=== PATIENT | male | born 1980 | race Caucasian/White ===

== ENCOUNTER 2017-12-24 10:52 | Emergency (ER) | payer SELFPAY ==
[~2017-12-24] VITALS: Ht 188 cm; Wt 93.6 kg
[2017-12-24] MEDS ORDERED: IBUPROFEN 600MG TABLET PO ONE (11:15)
[2017-12-24 13:02] VITALS: BP 150/99
== END 2017-12-24 13:35 | disposition home or self-care (01) ==
LOC: ER 10:52
DX: B35.3 Tinea pedis (principal); Z59.0 Homelessness
CPT/HCPCS: 99283

== ENCOUNTER 2017-12-31 13:11 | Emergency (ER) | payer SELFPAY ==
[~2017-12-31] VITALS: Ht 188 cm; Wt 95.0 kg
[2017-12-31 16:34] VITALS: BP 130/89
== END 2017-12-31 16:35 | disposition home or self-care (01) ==
LOC: ER 15:04
DX: S90.424A Blister (nonthermal), right lesser toe(s), initial encounter (principal); L03.115 Cellulitis of right lower limb; L03.031 Cellulitis of right toe; I10 Essential (primary) hypertension; X58.XXXA Exposure to other specified factors, initial encounter; Y93.01 Activity, walking, marching and hiking; Y92.480 Sidewalk as the place of occurrence of the external cause; Z59.0 Homelessness
CPT/HCPCS: 73630; 99284

== ENCOUNTER 2018-09-02 19:28 | Inpatient (IN) | payer MEDICAID ==
[~2018-09-02] VITALS: Ht 188 cm; Wt 102.1 kg
[2018-09-02] MEDS ORDERED: SODIUM CHLORIDE 0.9% 1,000 ML IV ONE ×2 (20:32→22:36)
[2018-09-02] MEDS ORDERED: METOPROLOL TARTRATE 50MG TABLET PO ONE (21:00)
[2018-09-02 21:04] LABS: HEMATOCRIT. 43.1 % (42.0-52.0); HEMOGLOBIN. 14.8 g/dL (14.0-18.0); MEAN CORPUSCULAR HEMOGLOBIN 32.8 pg (28.0-32.0); MEAN CORPUSCULAR VOLUME 95.4 fL (80.0-94.0); MEAN PLATELET VOLUME 8.6 fl (7.4-10.4); PLATELET 97 x1000/uL (130-400); RED BLOOD CELL COUNT 4.52 mill/uL (4.7-6.1); RED CELL DISTRIBUTION WIDTH 13.5 % (11.6-14.6)
[2018-09-02 21:06] LABS: CHLORIDE 100 mEq/L (98-107); PROTHROMBIN TIME 10.6 sec (9.6-11.0)
[2018-09-02 21:13] LABS: ETHANOL BLOOD < 10 mg/dL
[2018-09-02 21:18] LABS: PLATELET ESTIMATE DECREASED
[2018-09-02 21:28] LABS: CREATINE KINASE 1213 IU/L (39-308)
[2018-09-02 22:34] LABS: CLARITY URINE CLEAR (CLEAR); COLOR URINE YELLOW (YELLOW); KETONES URINE 1+ (NEGATIVE); LEUKOCYTE ESTERASE URINE NEGATIVE (NEGATIVE); NITRITE URINE NEGATIVE (NEGATIVE); OCCULT BLOOD URINE TRACE (NEGATIVE); PROTEIN URINE 1+ (NEGATIVE); SPECIFIC GRAVITY URINE 1.015 (1.005-1.030)
[2018-09-02] MEDS ORDERED: ENALAPRIL 2.5MG/2ML VIAL 2ML IV ONE (22:45)
[2018-09-02 22:51] LABS: *BARBITURATES SCREEN URINE NEGATIVE (NEGATIVE)
[2018-09-02 22:52] LABS: *AMPHETAMINES SCREEN URINE NEGATIVE (NEGATIVE); *BENZODIAZEPINES SCREEN URINE NEGATIVE (NEGATIVE); *COCAINE SCREEN URINE NEGATIVE (NEGATIVE); METHADONE URINE SCREEN NEGATIVE (NEGATIVE); OPIATES URINE SCREEN NEGATIVE (NEGATIVE)
[2018-09-02 22:53] LABS: CANNABINOID URINE SCREEN NEGATIVE (NEGATIVE); PHENCYCLIDINE URINE SCREEN NEGATIVE (NEGATIVE)
[2018-09-02] MEDS ORDERED: MAGNESIUM/ALUMINUM HYDROXIDE/SIMETHICONE 30ML UDC PO PRN (23:15)
[2018-09-02] MEDS ORDERED: ACETAMINOPHEN 325MG TABLET PO PRN (23:15)
[2018-09-02] MEDS ORDERED: IPRATROPIUM/ALBUTEROL 0.5-3(2.5)MG/3ML NEB INH PRN (23:15)
[2018-09-02] MEDS ORDERED: NA PHOS,M-B/NA PHOS,DI-BA ENEMA 118ML PR PRN (23:15)
[2018-09-02] MEDS ORDERED: ONDANSETRON HCL 4MG/2ML INJ IV PRN (23:15)
[2018-09-02] MEDS ORDERED: DIPHENHYDRAMINE 50MG/ML VIAL IV PRN (23:15)
[2018-09-02] MEDS ORDERED: GUAIFENESIN 200MG/10ML SUGAR FREE UDC PO PRN (23:15)
[2018-09-02] MEDS ORDERED: LORAZEPAM 2MG/ML CPJ IV PRN ×2 (23:27→23:30)
[2018-09-02] MEDS ORDERED: MVI, ADULT NO.1 10 ML, FOLIC ACID 1 MG, THIAMINE HCL 100 MG in SODIUM CHLORIDE 0.9% 1,0... IV SCH ×4 (23:59)
[2018-09-03] MEDS ORDERED: HYDRALAZINE 20MG/ML VIAL IV PRN (02:45)
[2018-09-03 03:45] VITALS: BP 156/100
[2018-09-03 04:00] VITALS: BP 156/100
[2018-09-03] MEDS ORDERED: VITA400C19 PO (04:15)
[2018-09-03] MEDS ORDERED: ASA5EC PO (04:15)
[2018-09-03] MEDS ORDERED: ASCO125T PO (04:15)
[2018-09-03] MEDS ORDERED: ERGO400C PO (04:15)
[2018-09-03] MEDS: HYDROCODONE/ACETAMINOPHEN 5/325MG TABLET PO PRN ×2 (04:21→08:33)
[2018-09-03] MEDS: DOCUSATE SODIUM 100MG CAPSULE PO PRN ×2 (04:38→23:10)
[2018-09-03] MEDS: CLONIDINE 0.1MG TABLET PO PRN ×2 (04:38→12:23)
[2018-09-03] MEDS: SODIUM CHLORIDE 0.9% INJ 3ML FLUSH IVF SCH ×2 (05:43→21:06)
[2018-09-03 07:08] LABS: BASOPHILS % 0.2 % (0.0-2.0); EOSINOPHILS % 0.7 % (0.0-5.0); HEMATOCRIT. 41.7 % (42.0-52.0); HEMOGLOBIN. 14.4 g/dL (14.0-18.0); MEAN CORPUSCULAR HEMOGLOBIN 33.1 pg (28.0-32.0); MEAN CORPUSCULAR VOLUME 95.6 fL (80.0-94.0); MEAN PLATELET VOLUME 9.4 fl (7.4-10.4); MONOCYTES % 9.5 % (2.0-8.0); NEUTROPHILS % 78.6 % (40.0-76.0); PLATELET 91 x1000/uL (130-400); RED BLOOD CELL COUNT 4.37 mill/uL (4.7-6.1); RED CELL DISTRIBUTION WIDTH 13.2 % (11.6-14.6)
[2018-09-03 07:20] LABS: CHLORIDE 105 mEq/L (98-107)
[2018-09-03 07:33] LABS: T4 FREE 1.16 ng/dL (0.76-1.46)
[2018-09-03 07:36] LABS: CREATINE KINASE MB FRACTION 9.2 ng/mL (0.5-3.6)
[2018-09-03 07:48] LABS: CREATINE KINASE 1313 IU/L (39-308)
[2018-09-03 07:55] VITALS: BP 135/94
[2018-09-03] MEDS ORDERED: PNEUMOCOCCAL 23-VAL P-SAC VAC 0.5 ML IM ONE (08:00)
[2018-09-03 12:00] VITALS: BP 143/95
[2018-09-03] MEDS: HYDROMORPHONE HCL/PF 2MG/ML CPJ IV PRN ×3 (12:23→23:10)
[2018-09-03 15:09] LABS: CREATINE KINASE 989 IU/L (39-308); CREATINE KINASE MB FRACTION 5.6 ng/mL (0.5-3.6)
[2018-09-03 16:00] VITALS: BP 134/96
[2018-09-03] MEDS ORDERED: POTASSIUM CHLORIDE 20MEQ TABLET SR PO NR (17:36)
[2018-09-03 20:00] VITALS: BP 120/72
[2018-09-03] MEDS: QUETIAPINE FUMARATE 25MG TABLET PO SCH (21:05)
[2018-09-03] MEDS: LAMOTRIGINE 25MG TABLET PO SCH (21:05)
[2018-09-03] MEDS: HYDRALAZINE 20MG/ML VIAL IV PRN (23:14)
[2018-09-04] VITALS: BP 156/103
[2018-09-04 04:00] VITALS: BP 147/99
[2018-09-04] MEDS: SODIUM CHLORIDE 0.9% INJ 3ML FLUSH IVF SCH ×2 (05:30→12:47)
[2018-09-04] MEDS: HYDROMORPHONE HCL/PF 2MG/ML CPJ IV PRN ×2 (05:30→08:48)
[2018-09-04 08:00] VITALS: BP 153/123
[2018-09-04] MEDS: LAMOTRIGINE 25MG TABLET PO SCH (08:47)
[2018-09-04] MEDS: QUETIAPINE FUMARATE 25MG TABLET PO SCH (08:47)
[2018-09-04] MEDS: HYDRALAZINE 20MG/ML VIAL IV PRN (08:48)
[2018-09-04 10:11] LABS: CHLORIDE 105 mEq/L (98-107)
[2018-09-04 10:22] LABS: CREATINE KINASE 519 IU/L (39-308)
[2018-09-04 10:28] LABS: CREATINE KINASE MB FRACTION 2.7 ng/mL (0.5-3.6)
[2018-09-04 11:32] LABS: HEPATITIS A AB IGM NEGATIVE (NEGATIVE)
[2018-09-04 12:00] VITALS: BP 141/98
[2018-09-04] MEDS: CLONIDINE 0.1MG TABLET PO PRN (12:47)
[2018-09-04 14:00] LABS: HEPATITIS B SURFACE ANTIGEN NEGATIVE
[2018-09-04 14:59] VITALS: BP 135/89
[2018-09-04 15:40] VITALS: BP 135/89
== END 2018-09-04 16:45 | disposition home or self-care (01) | DRG 53 ==
LOC: ER 19:28 → 5WST 22:49 → EDBEDREQTM 22:50 → EDBEDREQ 22:50 → ENRESERV 09-03 02:28
PROVIDERS: ADMIT Internal Medicine; ATTEND Internal Medicine
DX: G40.909 Epilepsy, unspecified, not intractable, without status epilepticus (principal); M62.82 Rhabdomyolysis; D69.6 Thrombocytopenia, unspecified; F25.9 Schizoaffective disorder, unspecified; E86.0 Dehydration; M54.5 Low back pain; I10 Essential (primary) hypertension; R74.0 Nonspecific elevation of levels of transaminase and lactic acid dehydrogenase [LDH]; F17.210 Nicotine dependence, cigarettes, uncomplicated; Z59.0 Homelessness; Z91.14 Patient's other noncompliance with medication regimen
CPT/HCPCS: 36415; 72100; 80048; 80076; 80305; 80320; 82550; 82553; 82962; 84439; 84443; 84484; 86705; 86709; 86803; 87340; 90732; 93005; 96361; 96365; 96375; 99291; J0360; J1170; J3411; J3490; J7030; G0480

== ENCOUNTER 2019-04-10 18:02 | Emergency (ER) | payer MEDICAID ==
[~2019-04-10] VITALS: Ht 185.4 cm; Wt 114.0 kg
[~2019-04-10 18:02] MED LIST: ASCO125T PO; ASPI325T85 PO; ERGO400C PO; VITA400C19 PO
[2019-04-10] MEDS ORDERED: SODIUM CHLORIDE 0.9% 1,000 ML IV ONE (20:09)
[2019-04-10] MEDS ORDERED: LEVETIRACETAM 500MG PREMIX 100 ML IV ONE (20:15)
[2019-04-10] MEDS ORDERED: LORAZEPAM 2MG/ML CPJ IV ONE (20:15)
[2019-04-10 21:02] LABS: BASOPHILS % 0.3 % (0.0-2.0); EOSINOPHILS % 0.3 % (0.0-5.0); HEMOGLOBIN. 15.1 g/dL (14.0-18.0); LYMPHOCYTES % 8.8 % (20.0-50.0); MEAN CORPUSCULAR HEMOGLOBIN 33.3 pg (28.0-32.0); MEAN CORPUSCULAR VOLUME 94.7 fL (80.0-94.0); MEAN PLATELET VOLUME 8.7 fl (7.4-10.4); MONOCYTES % 7.5 % (2.0-8.0); NEUTROPHILS % 83.1 % (40.0-76.0); PLATELET 78 x1000/uL (130-400); RED BLOOD CELL COUNT 4.54 mill/uL (4.7-6.1); RED CELL DISTRIBUTION WIDTH 13.3 % (11.6-14.6)
[2019-04-10 21:12] LABS: CHLORIDE 102 mEq/L (98-107)
[2019-04-10 22:00] VITALS: BP 171/90
== END 2019-04-10 22:38 | disposition home or self-care (01) ==
LOC: ER 18:02
DX: G40.909 Epilepsy, unspecified, not intractable, without status epilepticus (principal); I10 Essential (primary) hypertension; F10.21 Alcohol dependence, in remission; Z79.82 Long term (current) use of aspirin
CPT/HCPCS: 36415; 80053; 85025; 96365; 96366; 96375; 99283; J1953; J2060; J7030